=== PATIENT | female | born 2000 | race Caucasian/White ===

== ENCOUNTER 2021-05-05 15:24 | Emergency (ER) | payer OTHER, MEDICAID, SELFPAY ==
[~2021-05-05] VITALS: Ht 149.9 cm; Wt 45.4 kg
[2021-05-05 15:24] VITALS: BP_SYST 118
--- NOTE | 2021-05-05 15:24 | NUR ---
BROUGHT BACK TO BED #8 AND TRIAGED, REPORT GIVEN TO ALEX
--- NOTE | 2021-05-05 15:40 | NUR ---
DR BATISTA AT BEDSIDE FOR EVALUATION
[2021-05-05] MEDS ORDERED: IBUP-2018 PO (15:58)
[2021-05-05] MEDS ORDERED: NEOM28.36 TP (15:58)
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
[2021-05-05 16:47] VITALS: BP_SYST 118
--- NOTE | 2021-05-05 16:48 | NUR ---
Patient given written and verbal discharge instructions and verbalizes understanding. ER Dr. Villasenor discussed with patient the results and treatment provided. Patient in stable condition. ID arm band removed. Rx of Motrin and neosporin given. Patient educated on pain management and to follow up with PMD. Pain Scale 5. Opportunity for questions provided and answered. Medication side effect fact sheet provided.
== END 2021-05-05 16:47 | disposition home or self-care (01) ==
LOC: SED 15:24
DX: S00.83XA Contusion of other part of head, initial encounter (principal); Z79.899 Other long term (current) drug therapy; V49.49XA Driver injured in collision with other motor vehicles in traffic accident, initial encounter; Y93.89 Activity, other specified; Y92.89 Other specified places as the place of occurrence of the external cause; Y99.8 Other external cause status
CPT/HCPCS: 99282